=== PATIENT | male | born 1955 | race Hispanic/Latino ===

== ENCOUNTER 2017-02-12 14:46 | Emergency (ER) | payer MEDICARE ==
[2017-02-12 14:59] VITALS: BMI 22.3
--- NOTE | 2017-02-12 15:56 | RAD ---
HISTORY: psych COMPARISON: No prior. FINDINGS: LUNGS: No active pulmonary disease. PLEURA: No significant pleural effusion identified, no pneumothorax apparent. CARDIOVASCULAR: Normal. OSSEOUS STRUCTURES: No significant abnormalities. VISUALIZED UPPER ABDOMEN: Normal. OTHER FINDINGS: None. IMPRESSION: No active disease.
[2017-02-12 15:59] VITALS: RESP 18
[2017-02-12 16:04] LABS: BASO # 0.01 K/mm3 (0.0-2.0); BASO % 0.1 % (0.0-3.0); EOS % 0.3 % (1.5-5.0); GRAN # 5.75 (1.4-6.5); GRAN % 78.3 % (50.0-68.0); LYMPH % 13.5 % (22.0-35.0); MEAN CELL VOLUME 94.9 fl (80.0-105.0); MEAN CORPUSCULAR HEMOGLOBIN 32.8 pg (25.0-35.0); MEAN CORPUSCULAR HGB CONC 34.6 g/dl (31.0-37.0); MEAN PLATELET VOLUME 8.7 fl (7.0-11.0); MONO # 0.6 (0.1-0.6); MONO % 7.8 % (1.0-6.0); RED CELL DISTRIBUTION WIDTH 14.8 % (11.5-14.5); WHITE BLOOD COUNT 7.3 10^3/ul (4.5-11.0)
[2017-02-12 16:13] LABS: ALB/GLOB RATIO 1.4 (1.1-1.8); ALKALINE PHOSPHATASE 110 U/L (38-126); ALT/SGPT 33 U/L (7-56); AST/SGOT 34 U/L (17-59); BILIRUBIN,TOTAL 0.6 mg/dL (0.2-1.3); BLOOD UREA NITROGEN 13 mg/dL (7-21); CALCIUM 9.6 mg/dL (8.4-10.5); CARBON DIOXIDE 26 mmol/L (21-33); CHLORIDE 103 mmol/L (98-107); GFR AFRICAN-AMERICAN > 60; GLUCOSE,RANDOM 88 mg/dL (70-110); POTASSIUM 4.2 mmol/L (3.6-5.0); SODIUM 140 mmol/L (132-148); TOTAL PROTEIN 7.1 g/dL (5.8-8.3)
--- NOTE | 2017-02-12 16:58 | ED PDOC ---
Arrival/HPI - General Historian: Patient - General Chief Complaint: Psychiatric Evaluation Time Seen by Provider: 02/12/17 15:03 - History of Present Illness Narrative History of Present Illness (Text): 02/12/17 18:00 61 yo M presents for psychiatric evaluation for c/o feeling and hearing vibrations in the floors and pisano x 1 year, occurring all day, almost everyday. Patient reports that he went to the [facility] and was told to come to the ER for further evaluation. Other psychiatric symptoms: ( -) visual hallucinations, (-) suicidal ideation, (-) homicidal ideation. Otherwise: (-) trauma, (-) fever, (-) tinnitus, (-) URI, (-) decrease in hearing , (-) ear pain, (-) headache, (-) dizziness, (-) dyspnea, (-) chest pain, (-) vomiting, (-) substance abuse, (-) medications, (-) drug use. (Mg NARVAEZ,Harika Moss) Past Medical History - Provider Review Nursing Documentation Reviewed: Yes - Past History Past History: No Previous - Infectious Disease Hx of Infectious Diseases: None - Tetanus Immunization Tetanus Immunization: Unknown - Cardiac Hx Cardiac Disorders: No Hx Hypertension: Yes - Pulmonary Hx Tuberculosis: No - Neurological HX Cerebrovascular Accident: No Hx Seizures: No - HEENT Hx HEENT Disorder: No - Renal Hx Renal Disorder: No - Endocrine/Metabolic Hx Endocrine Disorders: No - Hematological/Oncological Hx Cancer: No - Integumentary Other/Comment: "skin condition" unspecified - Musculoskeletal/Rheumatological Hx Musculoskeletal Disorders: Yes Hx Back Pain: Yes - Gastrointestinal Hx Gastrointestinal Disorders: Yes Other/Comment: "acidic stomach". umbilical hernia - Genitourinary/Gynecological Hx Sexually Transmitted Diseases: No - Psychiatric Hx Psychophysiologic Disorder: No Hx Substance Use: No - Anesthesia Hx Anesthesia: Yes Hx Anesthesia Reactions: No Hx Malignant Hyperthermia: No - Suicidal Assessment Feels Threatened In Home Enviroment: No Family/Social History - Physician Review Nursing Documentation Reviewed: Yes Family/Social History: No Known Family HX Smoking Status: Heavy Smoker > 10 Cigarettes Daily Hx Alcohol Use: Yes Frequency of alcohol use: Socially Hx Substance Use: No Allergies/Home Meds Allergies/Adverse Reactions: Allergies No Known Allergies Allergy (Verified 02/22/16 12:07) Home Medications: Home Meds Medication Instructions Recorded Confirmed No Known Home Med 02/12/17 02/12/17 Review of Systems - Review of Systems Constitutional: Normal. absent: Fatigue, Weight Change, Fevers Respiratory: Normal. absent: SOB, Cough, Sputum Cardiovascular: Normal. absent: Chest Pain, Palpitations, Edema Musculoskeletal: Normal. absent: Arthralgias, Back Pain, Neck Pain Skin: Normal. absent: Rash, Pruritis, Skin Lesions Psychiatric: Normal, Other (auditory hallucinations). absent: Anxiety, Depression, Suicidal Ideation Physical Exam - Physical Exam Narrative Physical Exam (Text): 02/12/17 18:13 GENERAL APPEARANCE: Patient is awake, alert, oriented x 3, in no acute distress. SKIN: Warm, dry; (-) cyanosis. HEAD: (-) scalp swelling, (-) scalp tenderness. EYES: (-) conjunctival pallor, (-) scleral icterus, (-) nystagmus. Ear canals : normal, TMs : normal. ENMT: Mucous membranes moist. Airway patent: (-) stridor. NECK: (-) tenderness, (-) stiffness, (-) lymphadenopathy. CHEST AND RESPIRATORY: (-) rales, (-) rhonchi, (-) wheezes; breath sounds equal. ABDOMEN: Soft, (-) distention, (-) tenderness, (-) guarding. NEURO AND PSYCH: Mental status as above. Affect: normal. Memory: Intact. hotel services sales representative: Pupils equal and reactive; EOMI; (-) facial asymmetry; tongue and uvula midline. Strength and DTRs symmetric. (Mg NARVAEZ,Harika Moss) Vital Signs Temp Pulse Resp BP Pulse Ox 02/12/17 17:00 98.1 F 80 18 127/74 100 02/12/17 15:59 98.0 F 78 18 125/77 99 Medical Decision Making ED Course and Treatment: 02/12/17 16:55 61 yo M presents for psychiatric evaluation for c/o feeling and hearing vibrations in the floors and pisano x 1 year, occurring all day, almost everyday. Plan: - Labs - EKG - CXR - PES evaluation EKG : NSR at 76 bpm, (-) acute ST changes, as read by JOSE GUADALUPE CXR: NAD, as read by JOSE GUADALUPE Labs reviewed and are wnl. Patient is medically cleared for PES eveluation. After PES evaluation, plan will be for outpatient f/u with Dr. Daley today or tomorrow as per PES, the patient will make the appointment. Patient agrees with the following plan, feels comfortable going home. (Mg NARVAEZ,Harika Moss) I was available for consultation during PA evaluation. The chart was reviewed by me, and I agree with disposition. The documented history was done by the physician scow derrick operator. The documented physical exam was done by the physician scow derrick operator. The documented procedures were done by the physician scow derrick operator. (Jovani Valenzuela) - Lab Interpretations Lab Results: 02/12/17 15:07 02/12/17 15:07 Lab Results 02/12/17 15:07: Alcohol, Quantitative < 10 02/12/17 15:07: Sodium 140, Potassium 4.2, Chloride 103, Carbon Dioxide 26, Anion Gap 15, BUN 13, Creatinine 0.8, Est GFR ( Amer) > 60, Est GFR (Non- Af Amer) > 60, Random Glucose 88, Calcium 9.6, Total Bilirubin 0.6, AST 34, ALT 33, Alkaline Phosphatase 110, Total Protein 7.1, Albumin 4.1, Globulin 3.0, Albumin/Globulin Ratio 1.4 02/12/17 15:07: WBC 7.3, RBC 4.11, Hgb 13.5 L, Hct 39.0 L, MCV 94.9, MCH 32.8, MCHC 34.6, RDW 14.8 H, Plt Count 202, MPV 8.7, Gran % 78.3 H, Lymph % (Auto) 13.5 L, [place] % (Auto) 7.8 H, Eos % (Auto) 0.3 L, Baso % (Auto) 0.1, Gran # 5.75 , Lymph # 1.0 L, [place] # 0.6, Eos # 0.0, Baso # 0.01 - RAD Interpretation Radiology Orders: 02/12/17 15:05 CHEST PORTABLE [RAD] Stat - PA / MANUFACTURING PROJECT ENGINEER / Resident Statement MD/DO has reviewed & agrees with the documentation as recorded. Disposition/Present on Arrival - Present on Arrival Any Indicators Present on Arrival: No History of DVT/PE: No History of Uncontrolled Diabetes: No Urinary Catheter: No History of Decub. Ulcer: No History Surgical Site Infection Following: None - Disposition Have Diagnosis and Disposition been Completed?: Yes Disposition Time: 16:56 Patient Plan: Discharge - Disposition Diagnosis: Psychotic disorder Disposition: HOME/ ROUTINE Condition: STABLE Discharge Instructions (ExitCare): Brief Psychotic Disorder (ED) Print Language: KYRGYZ Additional Instructions: Thank you for letting us take care of you today. You were treated for _. The emergency medical care you received today was directed at your acute symptoms. Return to the Emergency Department if your symptoms worsen, do not improve, or if you have any other problems. Please contact Dr. Daley today to schedule follow up for re-evaluation. Bring any paperwork you were given at discharge with you along with any medications you are taking to your follow up visit. Our treatment cannot replace ongoing medical care by a primary care provider (PCP) outside of the emergency department. Thank you for allowing the [facility] team to be part of your care today. Referrals: Oni Lucero MD [Primary Care Provider] - Follow up with primary Forms: [employer] (Telugu)
[2017-02-12 17:15] VITALS: BP 127/74; PULSE 80; TEMP 98.1; O2SAT 100
--- NOTE | 2017-02-13 13:09 | CARD ---
APPROVED REPORT EKG Measurement Heart [id number] <Conclusion> Normal sinus rhythm Normal ECG
== END 2017-02-12 17:22 | disposition home or self-care (01) ==
LOC: ED 14:46
DX: F23 Brief psychotic disorder (principal); I10 Essential (primary) hypertension; F17.210 Nicotine dependence, cigarettes, uncomplicated
CPT/HCPCS: 71010; 80053; 85025; 90791; 93005; 99283; G0480

== ENCOUNTER 2018-01-31 11:34 | Day surgery (SDC) | payer MEDICARE ==
[2018-01-31] MEDS ORDERED: Lidocaine 1% w Epi 1:100,000 Inj ONE (12:10)
[2018-01-31] MEDS ORDERED: Liquid Adhesive TOP ONE (12:10)
[2018-01-31 12:13] VITALS: RESP 20
[2018-01-31] MEDS ORDERED: Succinylcholine 200 mg/10 ml Inj IV ONE (13:39)
[2018-01-31] MEDS ORDERED: Lidocaine PF 2% (5 ml) Inj (For Cardiac Arrhy) ONE ×2 (13:39→15:35)
[2018-01-31] MEDS ORDERED: Propofol 10 mg/ml Inj (20 ML) ONE (13:39)
[2018-01-31] MEDS ORDERED: Midazolam 2 MG/2 ML VIAL ONE (13:39)
[2018-01-31] MEDS ORDERED: Lidocaine 1% w Epi 1:100,000 Inj IJ ONE ×2 (14:05)
[2018-01-31] MEDS ORDERED: ePHEDrine 50 mg/ml Inj ONE (14:13)
[2018-01-31] MEDS ORDERED: Bacitracin Ointment 30 GM TUBE ONE (14:50)
[2018-01-31] MEDS ORDERED: Tobramycin 0.3% OPH OINT ONE (15:13)
[2018-01-31] MEDS ORDERED: HYDROmorphone 0.5 mg/0.5 ml ISec IVP PRN (15:50)
--- NOTE | 2018-01-31 15:51 | PCM.SURG1 ---
Surgeon's Initial Post Op Note - Surgeon's Notes Surgeon: Dr. Huang Athletic Turf Worker: Dr. Souza PGY3 Type of Anesthesia: General Endo Anesthesia Administered By: Dr. 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
[2018-01-31] MEDS ORDERED: Lactated Ringer's 1,000 ML IV SCH (16:00)
[2018-01-31] MEDS ORDERED: HYDROmorphone 0.5 mg/0.5 ml ISec ONE (16:29)
[2018-01-31 16:50] VITALS: PULSE 69
[2018-01-31 17:09] VITALS: BP 123/65; TEMP 97.6; O2SAT 96
--- NOTE | 2018-01-31 22:11 | OP ---
Copied To: Reji Huang DO Attending MD: Reji Huang DO PROCEDURE DATE: 01/31/2018 PREOPERATIVE DIAGNOSIS: Probable basal carcinoma involving a lateral canthal upper and lower eyelid. POSTOPERATIVE DIAGNOSIS: Probable basal carcinoma involving a lateral canthal upper and lower eyelid. PROCEDURE: Excision of tumor involving the left upper and lower eyelid and lateral canthal area with reconstruction. SURGEON: Reji Huang DO ANESTHESIA: General. ESTIMATED BLOOD LOSS: Minimal. OPERATIVE PROCEDURE: This is a 59-year-old white male with a history of progressive enlarging mass involving the left lateral canthal region extending to the upper and lower eyelid margins. The patient was noted to have ulcerative component as well as an exophytic component and was draining on physical examination. Consent was obtained to remove the tumor with possible reconstruction using possible skin grafts or rotation flaps. The patient was prepped and draped and the wound was injected using 1% Xylocaine with epinephrine. The mass was excised superiorly to inferiorly with the #15 blade down to the lid margin and the tarsal plate, both on the lateral and upper eyelid regions. Scissor dissection was carried down to the orbicularis muscle where bleeding was then controlled with use of electrocautery. Margins were obtained from throughout the lesion and was sent down for frozen sections which were negative for involvement. The wound then was undermined laterally along the periorbital area with blunt and sharp scissor dissection. Bleeding again was controlled with the use of electrocautery. A 5-0 Vicryl sutures were used to close the subcuticular layers lateral to the lateral canthal area and a V-Y advancement flap closure was accomplished with the use of 5-0 Vicryl subcuticular sutures followed by Prolene in a running locking fashion epidermal sutures laterally. The lower and upper eyelid lid margins were then reapproximated with a combination of 6-0 Prolene sutures and 6-0 fast-absorbing gut sutures. There was a corner stitch placed along the lateral canthal ligament which was then also affixed to the epidermal sutures laterally with # 6-0 Prolene suture. Tobradex ophthalmic ointment was applied with Steri-Strips. The patient tolerated the procedure well and was taken from the operating room to recovery room in stable condition. Reji Huang DO MTDD
== END 2018-01-31 18:40 | disposition home or self-care (01) ==
LOC: SDS 11:34
PROVIDERS: ATTEND Otolaryngology
DX: C44.119 Basal cell carcinoma of skin of left eyelid, including canthus (principal)
CPT/HCPCS: 14060; 88305; 88331; J0330; J0690; J1170; J2250; J2704; J3010; J7120 ×2

== ENCOUNTER 2018-06-12 10:22 | Outpatient (CLI) | payer MEDICARE | END 2018-06-12 10:23 | disposition home or self-care (01) | LOC: RAD 10:22 ==